=== PATIENT | female | born 1965 | race Caucasian/White ===

== ENCOUNTER 2018-01-25 18:30 | Emergency (ER) | payer MEDICAID, OTHER ==
[2018-01-25] MEDS: MECLIZINE 12.5 MG TAB PO (22:59)
[2018-01-25] MEDS: ONDANSETRON 4 MG INJ IV (22:59)
[2018-01-25 23:03] LABS: ADD MAN DIFF? NO
[2018-01-25 23:06] LABS: BASOPHILS % 0.2 % (0.0-2.0); HEMOGLOBIN 14.7 g/dl (12.0-16.0); LYMPHOCYTES # 0.9 10^3/ul (0.8-2.9); MEAN CORPUSCULAR HEMOGLOBIN 29.8 pg (29.0-33.0); MEAN CORPUSCULAR HGB CONC 34.2 g/dl (32.0-37.0); MEAN PLATELET VOLUME 10.5 fl (7.4-10.4); MONOCYTE # 0.3 10^3/ul (0.3-0.9); MONOCYTES % 2.6 % (0.0-11.0); NEUTROPHIL # 11.5 10^3/ul (1.6-7.5); NEUTROPHILS % 89.7 % (39.0-77.0); PLATELET COUNT 257 10^3/UL (140-415); RED BLOOD COUNT 4.94 10^6/ul (4.20-5.40); RED CELL DISTRIBUTION WIDTH 12.4 % (11.5-14.5)
[2018-01-25 23:06] LABS: WHITE BLOOD COUNT 12.9 10^3/ul (4.8-10.8)
[2018-01-25 23:28] LABS: ALANINE AMINOTRANSFERASE 29 IU/L (13-69); ALBUMIN 4.2 g/dl (3.3-4.9); ALBUMIN/GLOBULIN RATIO 1.23; ALKALINE PHOSPHATASE 117 IU/L (42-121); ANION GAP 14 (8-16); ASPARTATE AMINO TRANSFERASE 26 IU/L (15-46); BILIRUBIN,INDIRECT 0.3 mg/dl (0-1.1); BILIRUBIN,TOTAL 0.3 mg/dl (0.2-1.3); BLOOD UREA NITROGEN 14 mg/dl (7-20); CALCIUM 9.8 mg/dl (8.4-10.2); CARBON DIOXIDE 28 mmol/L (21-31); CHLORIDE 109 mmol/L (97-110); CREATININE 0.52 mg/dl (0.44-1.00); GLUCOSE 133 mg/dl (70-220); LIPASE 48 U/L (23-300); SODIUM 147 mmol/L (135-144); TOTAL PROTEIN 7.6 g/dl (6.1-8.1)
== END 2018-01-26 01:42 | disposition home or self-care (01) ==
LOC: E/R 18:30
DX: R42 Dizziness and giddiness (principal); R11.10 Vomiting, unspecified
CPT/HCPCS: 70450; 80053; 83690; 85025; 93005; 96374; 99285-25